=== PATIENT | female | born 1990 | race Caucasian/White ===

== ENCOUNTER 2024-01-16 16:35 | Emergency (ER) | payer SELFPAY ==
[2024-01-16 16:38] VITALS: BP 145/102
[2024-01-16 17:04] LABS: % Basophils 0.6 % (0-2); % Eosinophils 1.8 % (0-6); % Immature Granulocytes 0.4 % (0-0.5); % Lymphocytes 26.3 % (20.5-51.1); % Monocytes 8.4 % (1.7-9.3); % Neutrophils 62.5 % (42.2-75.2); Absolute Basophils 0.1 10^3/uL (0-0.2); Absolute Eosinophils 0.2 10^3/uL (0-0.7); Absolute Lymphocytes 2.8 10^3/uL (1.2-3.4); Absolute Monocytes 0.9 10^3/uL (0.1-0.6); Absolute Neutrophils 6.6 10^3/uL (1.4-6.5); Hematocrit 37.7 % (37.0-47.0); Hemoglobin 12.2 g/dL (12.0-16.0); Mean Corp Hgb Conc. 32.4 g/dL (33.0-37.0); Mean Corpuscular Hgb 23.1 pg (27.0-31.0); Mean Corpuscular Volume 71.4 fL (81.0-99.0); Nucleated Red Blood Cells % 0 %; Platelet Count 471 10^3/uL (130-400); Red Blood Cell Count 5.28 10^6/uL (4.20-5.40); Red Cell Dist. Width 16.6 % (11.5-14.5); White Blood Cell Count 10.5 10^3/uL (4.8-10.8)
[2024-01-16 17:24] LABS: ALT (SGPT) 12 U/L (0-35); AST (SGOT) 18 U/L (14-36); Albumin 4.6 g/dl (3.5-5.0); Alkaline Phosphatase 56 U/L (38-126); Blood Urea Nitrogen 13 mg/dl (7-17); Calcium 9.6 mg/dl (8.4-10.2); Carbon Dioxide 23 mmol/L (22-30); Chloride 104 mmol/L (98-107); Glucose 94 mg/dl (70-99); Potassium 4.3 mmol/L (3.5-5.1); Sodium 139 mmol/L (135-145); Total Bilirubin 0.2 mg/dl (0.2-1.3); Total Protein 7.9 g/dl (6.3-8.2); eGFR > 60.00
[2024-01-16 17:33] LABS: HCG, Serum Qualitative Screen Negative
[2024-01-16 17:34] LABS: Lipase 142 U/L (23-300)
--- NOTE | 2024-01-16 20:09 | ED.GENMED ---
History of Present Illness
General
Chief Complaint: Abdominal Symptoms
Source: patient
Exam Limitations: none
Time Seen by Provider: 01/16/24 19:09
History of Present Illness
History of Present Illness:
This is a 33 year old female that comes in with c/o visual changes. States that over the past week she has had numbness in her hands that comes and goes. States that after she wakes up in the morning it last about 1.5 hours. Today she was at work
and she lost vision in the left eye like a curtain come over it and she saw colorful spots in the right eye. States that this lasted for about 5 min. States that she has had diarrhea and that she has lost 110 pounds over the past year. States that
she had had a colonoscopy and endoscopy and was to have blood work done but she lost the paper. States that they were thinking she had Crohn's. States that she is afraid that since she did not take care of her self this is due to Crohn's. Denies any
fever, chills, chest pain, SOB, abd pain, nausea, vomiting, headache, dizziness, urinary burning .
Past History
Past History
ED Past Medical History: Psychiatric (Anxiety and depression) and Other (Horizontal nystagmus, covid)
ED Past Surgical History: None
Social History
Tobacco: Smoker
Alcohol: Occasional
Drug: Marijuana
Personal: Single
Living: with family
Employment: Employed
Family History
Family History: Other
Review of Systems
Review of Systems
All Other Systems: ROS reviewed and negative except as documented in HPI and ROS
Constitutional: Reports no symptoms; Denies fever or chills
EENT: Reports other (Visual changes in the left eye lost vision, Spots in the right eye)
Cardiac: Reports no symptoms; Denies chest pain
ABD/GI: Reports diarrhea; Denies abdominal pain, nausea or vomiting
: Reports no symptoms; Denies dysuria, frequency or urgency
Musculoskeletal: Reports no symptoms
Skin: Reports no symptoms
Neurological: Reports no symptoms; Denies dizzy or headache
Psychiatric: Reports no symptoms
Phy Exam
General Physical Exam
General Presentation: no apparent distress
General age: appears stated age
General Skin: warm and dry
General Habitus: normal
General Mental: alert and anxious
General Hydration: appears well hydrated
ENT Exam
ENT Exam: TM's normal, pharynx normal and neck supple
Eye Exam
Eye Exam: EOMI
Cardiovascular Exam
Cardiovascular Exam: regular rate/rhythm, no edema, no murmur and normal peripheral pulses
Pulmonary Exam
Pulmonary Exam: lungs clear, no respiratory distress, no rales, chest non tender, no crackles, no rhonchi, no wheezing and no cough
Gastrointestinal Exam
Gastrointestinal Exam: normal bowel sounds, non tender, soft, no organomegaly, no pulsatile mass and non distended
NIH Stroke Score
Level of Consciousness: 0 - Alert
LOC questions: 0-Answers both correctly
LOC Commands: 0-Performs both correctly
Best Gaze: 0-Normal
Visual Jacobo: 0=Normal, no visual loss
Facial palsy: 0=Normal, symmetrical
Motor - Right Arm: 0=No drift 10 seconds
Motor - Left Arm: 1=Drift < 10 seconds (Slight)
Motor - Right Le-No drift 5 seconds
Motor - Left Le-No drift 5 seconds
Limb Ataxia: 0-Absent
Sensation: 0-Normal
Best Language: 0-No aphasia
Dysarthria: 0-Normal
Extinction and Inattention: 0-No abnormality
Total Score:: 1
Musculoskeletal Exam
Musculoskeletal Exam: full ROM, no edema and other (hand grasp and push pulls equal)
Skin Exam
Skin Exam: normal color, warm/dry, no rash and no petechia
Psychiatric Exam
Psychiatric Exam: normal mood/affect
Course
Orders/Labs/Results
Orders:
Orders
01/16/24 16:43
Test Result ONCE
01/16/24 16:45
Complete Blood Count/With Diff Urgent
Comprehensive Metabolic Panel Urgent
HCG, Serum Qualitative Screen Urgent
Lipase Urgent
Abnormal Lab Results
01/16/24
16:45
MCV 71.4 L fL
(81.0-99.0)
MCH 23.1 L pg
(27.0-31.0)
MCHC 32.4 L g/dL
(33.0-37.0)
RDW 16.6 H %
(11.5-14.5)
Plt Count 471 H 10^3/uL
(130-400)
Absolute Neuts (auto) 6.6 H 10^3/uL
(1.4-6.5)
Absolute Monos (auto) 0.9 H 10^3/uL
(0.1-0.6)
01/16/24 16:45
01/16/24 16:45
Slight anemia. HCG negative Plt slightly elevated. Lipase normal at 142, HCG negativ.
Vital Signs
Initial and Last Documented VS:
Initial Vital Signs
Temp Pulse Resp BP Pulse Ox
98.2 F 109 18 145/102 99
01/16/24 16:38 01/16/24 16:38 01/16/24 16:38 01/16/24 16:38 01/16/24 16:38
Last Documented Vital Signs
Temp Pulse Resp BP Pulse Ox
98.2 F 77 16 134/84 98
01/16/24 16:38 01/16/24 20:17 01/16/24 20:17 01/16/24 20:17 01/16/24 20:17
MDM/Problems Addressed
Differential Diagnosis Includes:
CVA, Complicated Migraine
MDM/Problems Addressed:
This is a 33 year old female that comes in with c/o lossing her vision in the left eye like a curtain came down over her eye and colorful spot in the right eye. States that she also has had numbness in her hands over the past week that comes and
goes.
Will check labs. CTA head and neck.
Told by nursing that the patient left without talking.
Chronic conditions affecting care: Psychiatric illness
Acute Exacerbation and/or Progression of Chronic Illness:
NA
*Pulse Oximetry
Patient hypoxic: no
*EKG
Interpreted by ED Provider?: NA
Rate: EKG- N/A
*Almond Blancher Interpretation
Rate: Almond Blancher- N/A
*Critical Care Note
Total Time (30-74mins, 75-104mins- exclusive of procedures): Not Applicable
ED Attending Note
-
Portions of this chart may have been created with voice recognition software.� Occasional wrong word or��sound alike� substitutions may have occurred due to the inherent limitations of voice recognition software.
Discharge Plan
Departure
Patient with high blood pressure during this ER visit?: Yes
Condition: Good
Covid-19: Not Applicable
Discharge Problem:
Visual changes
Prescriptions:
No Action
Lexapro:
20 mg PO DAILY
ondansetron HCl 4 MG tablet
4 mg PO Q8HPRN PRN (Reason: nausea)
dextroamphetamine-amphetamine 10 MG tablet
10 mg PO DAILY
lorazepam 0.5 MG tablet
0.5 mg PO Q4HPRN PRN (Reason: anxiety)
prochlorperazine maleate 10 MG tablet
10 mg PO Q6HPRN PRN (Reason: nausea/vomiting) Qty: 20 0RF
Rx Instructions:
Take with 25mg of Benadryl
Referrals:
Keily Galeano CRNP [Family Provider] -
Interventions
Interventions:
*Risk Screen - Suicide Last Done: 01/16/24 16:38
*General Assessment Last Done: 01/16/24 16:38
*Neglect/Abuse Screening Last Done: 01/16/24 16:38
ED- Fall Risk Assessment Last Done: 01/16/24 20:18
*ED COVID-19 Vaccine History Last Done: 01/16/24 16:38
UN-Ojftp[facility]-Zjpjgjg[facility] Assessment Last Done: 01/16/24 20:18
Discharge Date and Time
Print Language: L[place]
[2024-01-16 20:17] VITALS: BP 134/84
[2024-01-16 20:18] VITALS: BMI 36.3
--- NOTE | 2024-01-16 20:20 | EDRN ---
Patients mom came out to desk stating patient wanted to go because we weren't doing a cat scan of what she wanted, offered for Ila, SUPPLY SPECIALIST to come back into the room, when this RN went back to talk to patient they were not in the room, triage nurse
informed me they walked out.
== END 2024-01-16 20:20 | disposition left against medical advice (07) ==
LOC: EMR 16:35
PROVIDERS: Emergency Medicine; EMERGENCY PHYSICIAN Emergency Medicine; FAMILY PHYSICIAN Nurse Practitioner
DX: H53.8 Other visual disturbances (principal); F17.200 Nicotine dependence, unspecified, uncomplicated; K50.90 Crohn's disease, unspecified, without complications
CPT/HCPCS: 99283; 80053; 83690; 84703; 85025